=== PATIENT | female | born 1945 | race African-American/Black ===

== ENCOUNTER 2025-05-29 11:16 | Emergency (ER) | payer OTHER ==
[~2025-05-29] VITALS: Ht 170.2 cm; Wt 59.4 kg
[2025-05-29 11:58] LABS: PLATELET COUNT (AUTO) 287 K/uL (150-450); RED BLOOD CELL COUNT(AUTO) 4.62 MIL/uL (4.0-5.2); RED CELL DISTRIBUTION WIDTH 16.4 % (11.5-15.0); WHITE BLOOD COUNT (AUTO) 12.6 K/uL (4.3-11.0)
[2025-05-29] MEDS: IV NS 0.9% 500 ML BAG IV ONE (12:11)
[2025-05-29 12:13] LABS: ASPARTATE AMINOTRANSFERASE 14 U/L (15-37); CALCIUM, SERUM 8.8 mg/dL (8.5-10.1); CREATININE 0.9 mg/dL (0.6-1.3); SODIUM SERUM 141 mmol/L (136-145); TOTAL PROTEIN, SERUM 6.5 g/dL (6.4-8.2); UREA NITROGEN, BLOOD 23 mg/dL (7-18)
[2025-05-29 13:37] LABS: APPEARANCE,URINE Turbid (CLEAR); BLOOD, URINE Moderate Ery/uL (NEGATIVE); LEUKOCYTE ESTERASE ,URINE Moderate (NEGATIVE); UGLUCOSE Negative (NEGATIVE)
[2025-05-29 13:38] LABS: NITRITE, URINE POSITIVE (NEGATIVE)
[2025-05-29 13:44] LABS: ADD URINE CULTURE YES; SQUAMOUS EPITHELIAL CELL,UR 0-2 /HPF (None Seen)
[2025-05-29] MEDS ORDERED: CEFTRIAXONE 1GM BAG (ER ONLY) 50 ML IV ONE (15:10)
[2025-05-29] MEDS: CEFTRIAXONE 1 G in IV D5W 50 ML IV ONE (15:14)
[2025-05-29] MEDS ORDERED: ASPIRIN 81 MG TAB.CHEW ONE (16:49)
[2025-05-29 16:51] VITALS: BP 151/66; TEMP 98.2; O2SAT 100
[2025-05-29] MEDS: ASPIRIN 81 MG TAB.CHEW PO ONE (17:15)
== END 2025-05-29 17:30 ==
LOC: ER 11:20
DX: G93.41 Metabolic encephalopathy (principal); E86.0 Dehydration; D50.9 Iron deficiency anemia, unspecified; I21.4 Non-ST elevation (NSTEMI) myocardial infarction; I49.1 Atrial premature depolarization; N39.0 Urinary tract infection, site not specified; R62.7 Adult failure to thrive; Z88.5 Allergy status to narcotic agent; Z86.2 Personal history of diseases of the blood and blood-forming organs and certain disorders involving the immune mechanism
CPT/HCPCS: 99285; 96365; 70450; 71045; 93005; 85025; 80048; 87077; 87040 ×2; 87086; 80076; 87186; 81001; 36415; 84443; 84484 ×2; J7040; J0696; J7060